=== PATIENT | male | born 1980 | race Caucasian/White ===

== ENCOUNTER 2019-10-06 14:02 | Outpatient (CLI) | payer BC, SELFPAY ==
--- NOTE | 2019-10-06 14:07 | MR_ITS ---
WS: [id number] MRI RIGHT KNEE NONCONTRAST TECHNIQUE: Axial PD, coronal PD fat sat, coronal PD, sagittal PD, and sagittal PD fat-sat images obta ined. CLINICAL INFORMATION: RIGHT KNEE SEPTIC ARTHRITIS COMPARISON: None. FINDINGS: Distal quadriceps and patella tendons are intact. Marked prepatellar and infrapatellar soft tissue ed arelis. Recommend correlation for cellulitis. Anterior and posterior cruciate ligaments are intact. Package Dyeing Machine Operator brittni intrasubstance signal abnormality in the medial meniscus. Lateral meniscus is intact. No acute ap pearing meniscal tears. Small amount of edema in Hoffa's fat pad. Normal popliteal fossa. No signific ant suprapatellar effusion. Normal medial and lateral collateral ligaments. Moderate chondromalacia patella. No subchondral edema . Normal medial and lateral patellar retinaculum. Mild chondromalacia involving the medial and lateral joint compartments. Small osteochondral defects involving the anterior and posterior articular surface of the MEDIAL femoral condyle. Anterior osteoc hondral defect measures 5 x 11 mm. Small amount of associated edema. Additional posterior articular o steochondral defect measuring 8 x 7 mm. Small amount of associated edema. MR/MR knee RT wo con* [id number] IMPRESSION: 1. Prominent diffuse subcutaneous edema involving the prepatellar soft tissues consistent with cellulitis. Recommend correlation for infection. No drainable fluid collections. 2. No significant suprapatellar effusion. 3. Anterior and posterior cruciate ligaments are intact. 4. Osteochondral defects involving the anterior and posterior articular surfac e of the medial femoral condyle with associated edema. This is described above. 5. Small amount of chronic intrasubstance signal abnormality involving the med ial meniscus. No acute appearing meniscal tears. 6. Moderate chondromalacia patella advanced for patient this age. No subchondr al edema.
== END 2019-10-06 14:03 | disposition home or self-care (01) ==
PROVIDERS: Family Provider Family Medicine; PCP Family Medicine; Visit Provider Family Medicine
DX: M00.861 Arthritis due to other bacteria, right knee (principal); R60.0 Localized edema; M22.41 Chondromalacia patellae, right knee
CPT/HCPCS: 73721

== ENCOUNTER 2019-10-11 09:41 | Inpatient (IN) | payer BC, SELFPAY ==
[2019-10-11 10:16] VITALS: BP 150/93; PULSE 97; RESP 20; TEMP 37.1; O2SAT 93
[2019-10-11 11:14] VITALS: BP 148/88; PULSE 86; RESP 20; TEMP 37; O2SAT 99
[2019-10-11] MEDS: vancomycin 1,000 MG in sodium chloride 0.9% 250 ML 250 MG IV (11:28)
[2019-10-11 11:33] LABS: Basophils # 0.1 10^3/uL (0.0-0.1); Basophils % 0.4 %; Eosinophils # 0.1 10^3/uL (0.0-0.8); Eosinophils % 0.9 %; Hematocrit 43.7 % (42.0-52.0); Hemoglobin 14.3 g/dL (11.7-16.6); Lymphocytes # 1.4 10^3/uL (0.8-4.8); Lymphocytes % 9.5 %; Mean Corpuscular HGB Conc 32.7 g/dL (30.0-36.0); Mean Corpuscular Hemoglobin 30.5 pg (28.0-34.0); Mean Corpuscular Volume 93.2 fL (80-94); Mean Platelet Volume 8.8 fL (7.4-10.4); Monocytes # 1.1 10^3/uL (0.2-0.9); Neutrophils # 11.89 10^3/uL (1.8-7.7); Neutrophils % 78.5 %; Nucleated Red Blood Cells % 0 %; Platelet Count 366 10^3/cmm (130-400); Red Blood Count 4.69 10^6/uL (4.1-5.3); Red Cell Distribution Width 13.2 % (12.1-15.1); White Blood Count 15.1 10^3/uL (4.0-10.0)
[2019-10-11 11:53] LABS: Alanine Aminotransferase 86 U/L (0-41); Albumin Level 3.8 g/dL (3.5-5.2); Alkaline Phosphatase 413 IU/L (40-130); Aspartate Amino Transferase 58 U/L (0-40); Blood Urea Nitrogen 19 mg/dL (6-20); C Reactive Protein 128.5 mg/L (0.0-4.9); Calcium 9.1 mg/dL (8.5-10.5); Carbon Dioxide 26 mmol/L (22-29); Chloride 100 mmol/L (98-107); Glomerular Filtration Rate 95.5 mL/min (90-130); Glucose 121 mg/dL (65-115); Osmolality Calculated 286 mOsm/kg (285-295); Sodium 139 mmol/L (136-145); Total Bilirubin 0.2 mg/dL (0.15-1.2); Total Protein 7.8 g/dL (6.6-8.7)
[2019-10-11 15:18] VITALS: BP 142/82; PULSE 81; RESP 20; TEMP 36.9; O2SAT 96
--- NOTE | 2019-10-11 18:18 | PC.NURSE ---
PT HAS RESTED IN BED THIS SHIFT, REDNESS AND SWELLING RIGHT RIGHT KNEE NOTED WELL A LINE DRAWN AROUND REDNESS, NO CHANGES AT THIS TIME.
[2019-10-11 20:00] VITALS: BP 136/89; PULSE 101; RESP 20; TEMP 37; O2SAT 97
[2019-10-11] MEDS: zolpidem 5 mg Tablet 10 MG PO (21:57)
[2019-10-11 23:39] VITALS: BP 123/73; PULSE 90; RESP 20; TEMP 36.7; O2SAT 96
[2019-10-12] MEDS: vancomycin 1,000 MG in sodium chloride 0.9% 250 ML 250 MG IV ×2 (00:26→13:04)
[2019-10-12 04:00] VITALS: BP 123/79; PULSE 72; RESP 18; TEMP 37; O2SAT 97
[2019-10-12 05:40] LABS: Basophils # 0.1 10^3/uL (0.0-0.1); Basophils % 0.7 %; Eosinophils # 0.3 10^3/uL (0.0-0.8); Eosinophils % 1.9 %; Hematocrit 42.7 % (42.0-52.0); Hemoglobin 13.7 g/dL (11.7-16.6); Lymphocytes # 2.2 10^3/uL (0.8-4.8); Lymphocytes % 13.5 %; Mean Corpuscular HGB Conc 32.1 g/dL (30.0-36.0); Mean Corpuscular Hemoglobin 29.3 pg (28.0-34.0); Mean Corpuscular Volume 91.2 fL (80-94); Mean Platelet Volume 8.8 fL (7.4-10.4); Monocytes # 1.7 10^3/uL (0.2-0.9); Monocytes % 9.9 %; Neutrophils # 11.54 10^3/uL (1.8-7.7); Neutrophils % 69.5 %; Nucleated Red Blood Cells % 0 %; Platelet Count 378 10^3/cmm (130-400); Red Blood Count 4.68 10^6/uL (4.1-5.3); Red Cell Distribution Width 13.2 % (12.1-15.1); White Blood Count 16.6 10^3/uL (4.0-10.0)
--- NOTE | 2019-10-12 06:40 | US_ITS ---
WS: [id number] ULTRASOUND SOFT TISSUES RIGHT knee HISTORY: US of right knee to evaluate for abscess COMPARISON: MRI 10/06/2019 TECHNIQUE: 2-D and color Doppler imaging is submitted. There is a large amount of fluid and edema surrounding the RIGHT knee. Ill-defined collection. There are no enhancing de la cruz. Collection extends over length of at least 4 cm. US/US soft tissue/extremity [id number] IMPRESSION: Mildly complex fluid collection surrounding the anterior RIGHT knee. Not well f ormed at this time. Phlegmonous collection or developing abscess. No definite w ell-formed abscess at this time.
--- NOTE | 2019-10-12 06:43 | PM.HP ---
Providers/Chief Complaint Admitting Physician: Patricio Davis MD Primary Care Provider: Patricio Davis MD Chief Complaint: RT KNEE CELLULITIS History of Present Illness Jayy Pelayo is a 38 year old male who presented to the clinic on the of this month with right knee pain swelling and redness. He had no injury to it. No sores or abrasions. Initially was thought to possibly be a septic knee. Discussed with Ortho at that time and we proceeded with an MRI. The MRI did not show any evidence of knee joint involvement. Look like a significant cellulitis. Patient was started on Levaquin 750 mg p.o. daily on that day. His white blood cell count was markedly elevated and his CRP was 230. Patient had no fevers during this time. He came in to see me in the clinic again on the . He stated at that time that the redness is gotten significantly worse on the but then it started to subside on the and . Overall it looked unchanged to me from what it was on the . He still had some significant pain and swelling. Blood work was obtained again which showed a modest improvement in white blood cell count and CRP. He followed up with me in a couple more days which was yesterday. There was really not significant improvement at that time. We discussed that we probably are dealing with a resistant bug to the Levaquin. At that point with the extensive pain redness and swelling we decided to admit him to the hospital for failed outpatient treatment of cellulitis. Patient received IV vancomycin since yesterday. This morning his knee is significantly improved. The erythema has receded from the najera placed yesterday. The swelling has went down some and the pain has subsided some as well. No fevers or chills. Review of Systems Narrative: General: No chronic fevers or chronic weight changes. HEENT: No acute changes in vision. No acute hearing loss. No new difficulty swallowing. Heart: No new chest pain or recent issues with coronary disease. Lungs: No history of TB. No chronic lung disease. GI: No history of GI bleeding. No hepatitis. No chronic nausea or vomitting. Renal: No dysuria or frequency. No hematuria Neuro: No acute neurological changes or deficits. Musculoskeletal: See history of present illness. Medications/Allergies Home Medications Medication Instructions Recorded Confirmed Last Taken Type multivitamin 1 PO DAILY 10/11/19 Unknown History Imitrex See Rx Instructions .ROUTE .COMPLEX 10/12/19 10/12/19 Unknown History cetirizine [Zyrtec] 10 mg PO DAILY PRN 10/12/19 10/12/19 Unknown History levofloxacin 750 mg PO DAILY 10/12/19 10/12/19 10/10/19 History Allergies Allergy/AdvReac Type Severity Reaction Status Date / Time No Known Allergies Allergy Verified 10/11/19 10:10 PFSH Acute PFSH: Medical History (Updated 10/12/19 @ 19:50 by Patricio Davis MD) Asthma Migraine Surgical History (Updated 10/12/19 @ 19:50 by Patricio Davis MD) History of tonsillectomy Family History (Updated 10/11/19 @ 10:08 by Salima Valdovinos RN) Mother Cancer Father Hypertension Social History (Updated 10/12/19 @ 19:52 by Patricio Davis MD) Smoking and tobacco status: never smoked Alcohol intake: former Substance/Drug Use: never Current occupation: works at [employer] Last Vital Signs Temp 98.6 F 10/12/19 04:00 Pulse 72 10/12/19 04:00 Resp 18 10/12/19 04:00 BP 123/79 10/12/19 04:00 Pulse Ox 97 10/12/19 04:00 10/11/19 10/11/19 10/12/19 14:59 22:59 06:59 Intake Total 490 / 850 360 / 850 Output Total 0 / 0 Balance 490 / 850 360 / 850 0 / 850 Physical Exam Narrative: EXAM NARRATIVE: General: No acute distress, Alert. Well nourished. HEENT: PERRLA, EOMI. vision grossly normal. Throat clear. Neck: supple, no adenopathy. Heart: Regular rate and rhythm. No murmurs, rubs or gallops. Normal capillary refill. Lungs: Clear to auscultation. No wheezes, rhonchi or rales. Abdomen: Positive bowel sounds. Non-tender, non-distended. No hepatosplenomegaly. No gaurding. Extremities: Right knee has extensive erythema and warmth to touch this is improved some since yesterday. Tender to touch but that is improved some as well. The top of his knee has become a little more fluctuant. Negative Omkar's. Data : 10/12/19 05:00 10/11/19 11:15 Micro: Microbiology 10/11/19 11:15 Blood Culture - Preliminary Blood SPECIMEN COLLECTED 10/11/19 11:20 Blood Culture - Preliminary Blood SPECIMEN COLLECTED A&P Assessment and plan (1) Cellulitis of right knee: -Patient has failed outpatient treatment with oral Levaquin 750 mg. Clinically this morning seems to be improved. Oddly enough his white blood cell count has increased slightly. Blood cultures in the clinic were negative. Blood cultures during his hospitalization are still pending. Suspect possibly MRSA. We will continue with the vancomycin. Go ahead and stop the Levaquin. Repeat labs in the morning. I would also like to proceed with an ultrasound of his knee to evaluate for any abscess formation. The MRI on the did not show any evidence of it at that time. If we get as much improvement tomorrow as we did today anticipate discharge tomorrow with outpatient IV vancomycin Status: Acute Attestations Medical Necessity Statement*: This is a 38-year-old male with failed outpatient treatment of a severe right knee cellulitis. Monitoring him closely for septic arthritis. He continues to need inpatient IV treatments and monitoring. His stay is anticipated to cross 2 midnights and will require full admission status. Coding Level of Care Code Acute Embedded Firmware Engineer for Tasha Elias Diagnoses Cellulitis of right knee L03.115
[2019-10-12] MEDS: levofloxacin-dextrose 5 % 750 MG/150 ML PREMIX 100 MG IV (07:30)
[2019-10-12 08:00] VITALS: BP 126/82; PULSE 83; RESP 16; TEMP 36.5; O2SAT 98
[2019-10-12 11:59] VITALS: BP 130/88; PULSE 97; RESP 16; TEMP 36.9; O2SAT 95
--- NOTE | 2019-10-12 13:50 | PC.CHAP ---
Pastoral Care Encounter/Spiritual Assessment Type of Contact [] Declined fish hatchery man visit [] Patient/Family/Request visit [] Outpatient visit [] Follow-up visit [] Physician referral [] Code/Alert [x] Routine visit [] Staff referral [] Actively dying [] Patient sleeping [] Family support [] [] Out of room [] Palliative care [] [] Receiving care in room [] Pre-surgical visit [] Trauma [] Long length of stay [] ICU visit [] Other: Relational/Emotional Strength [x] Patient feels connected with others/family/visitors/staff [] Distress [] Loneliness/isolation [] Abandonment Spirituality of Patient [] Person of Corine [] Attends Scientologist of their Corine [] Believes in Prayer [] Reads Bible or Protestant materials [x] There are Spiritual issues to be addressed Hander In Interventions [x] Prayer [x] Active listening [x] Non-anxious presence [x] Spiritual/emotional support [] Crisis/trauma care [] Spiritual counseling [] Bereavement support [] Provided bereavement packet [] Provided Bible/devotional materials [] Provided toy/stuffed animal, coloring book to patient or family member [] Provided Communion [] Anointing/Hunker [] Salvation [x] Completed spiritual assessment [] Other: Impact on Illness or Injury [] Angry [] Fearful [] Anxious [] Often cries [] Exhaustion [] Unable to work [] Unable to attend oriental orthodox [] Unable to walk/stand [] Unable to read [] Unable to drive [] Unable to eat/drink [] Unable to sleep [] Unable to be with family [] Patient intubated [] Other: Summary Patient knows Santana intellectually but not savingly. The gospel of Santana was provided. Time spent with patient 15 minutes
[2019-10-12 15:49] VITALS: BP 132/82; PULSE 86; RESP 16; TEMP 36.9; O2SAT 97
--- NOTE | 2019-10-12 17:36 | PC.NURSE ---
PT REDNESS AND SWELLING HAS GONE DOWN SINCE I HAD PT YESTERDAY ON 10/11/19, REDNESS AND SWELLING HAS BEEN MARKED FROM PREVIOUS SHIFT. PT HAS HAD NO COMPLAINTS OF PAIN OR DISCOMFORT.
[2019-10-12 19:48] VITALS: BP 141/93; PULSE 89; RESP 19; TEMP 37
[2019-10-12] MEDS: zolpidem 5 mg Tablet 10 MG PO (22:07)
[2019-10-12 23:56] VITALS: BP 130/68; PULSE 88; RESP 20; TEMP 36.7; O2SAT 99
[2019-10-13 00:55] LABS: Vancomycin Trough 5.3 ug/mL (10-15)
[2019-10-13 04:00] VITALS: BP 133/82; PULSE 88; RESP 18; TEMP 36.7; O2SAT 94
[2019-10-13 04:29] LABS: Basophils # 0.1 10^3/uL (0.0-0.1); Basophils % 0.7 %; Eosinophils # 0.4 10^3/uL (0.0-0.8); Eosinophils % 2.4 %; Hematocrit 42.9 % (42.0-52.0); Hemoglobin 13.8 g/dL (11.7-16.6); Lymphocytes # 2.4 10^3/uL (0.8-4.8); Mean Corpuscular HGB Conc 32.2 g/dL (30.0-36.0); Mean Corpuscular Hemoglobin 29.5 pg (28.0-34.0); Mean Corpuscular Volume 91.7 fL (80-94); Mean Platelet Volume 8.6 fL (7.4-10.4); Monocytes # 1.5 10^3/uL (0.2-0.9); Monocytes % 9.7 %; Neutrophils # 10.63 10^3/uL (1.8-7.7); Neutrophils % 67.5 %; Nucleated Red Blood Cells % 0 %; Platelet Count 392 10^3/cmm (130-400); Red Blood Count 4.68 10^6/uL (4.1-5.3); White Blood Count 15.8 10^3/uL (4.0-10.0)
[2019-10-13 04:54] LABS: C Reactive Protein 63.9 mg/L (0.0-4.9)
--- NOTE | 2019-10-13 06:38 | PM.PN ---
Subjective Subjective: Interval history: Patient has had some decrease pain in his right knee and decreased swelling. It does not hurt much to walk on. However, he has had some significantly increased redness. No fevers or chills. No chest pain or shortness of breath. Vitals/I&O/Wt Last Vital Signs Temp 98.0 F 10/13/19 04:00 Pulse 88 10/13/19 04:00 Resp 18 10/13/19 04:00 BP 133/82 10/13/19 04:00 Pulse Ox 94 10/13/19 04:00 10/12/19 10/12/19 10/13/19 14:59 22:59 06:59 Intake Total 1000 / 2240 640 / 2240 600 / 2240 Balance 1000 / 2240 640 / 2240 600 / 2240 Physical Exam Narrative: EXAM NARRATIVE: General: No acute distress, Alert. Well nourished. Heart: Regular rate and rhythm. No murmurs, rubs or gallops. Normal capillary refill. Lungs: Clear to auscultation. No wheezes, rhonchi or rales. Abdomen: Positive bowel sounds. Non-tender, non-distended. No hepatosplenomegaly. No gaurding. Extremities: No clubbing, cyanosis. He does have some increased erythema of his right knee that extends beyond the lines drawn yesterday. Swelling seems to be decreased some. Still a bit warm to touch. Not quite as tender to palpation. Negative Omkar's Data : 10/13/19 04:11 10/11/19 11:15 Micro: Microbiology 10/11/19 11:15 Blood Culture - Preliminary Blood NEGATIVE TO DATE 10/11/19 11:20 Blood Culture - Preliminary Blood NEGATIVE TO DATE A&P Assessment and plan (1) Cellulitis of right knee: -Patient had failed outpatient treatment for right knee cellulitis with Levaquin 750 mg. He was admitted to the hospital and started on IV vancomycin. He had pretty dramatic improvement in his erythema in the first 24 hours. His white blood cell count increased a little though. MRI as an outpatient showed no joint involvement. Ultrasound performed yesterday shows possible developing abscess but nothing definite at this point, this will need to continue to be monitored and possibly drained in the future depending on how it evolves. Unfortunately today his erythema has again worsened, however, his white blood cell count has improved slightly and his CRP has significantly improved. His swelling and tenderness has had some modest improvement since yesterday. -Clinically his response here is been a mixed picture. He he definitely has not had a dramatic improvement in the last 24 hours that he did in the first 24 hours. Cultures done in the clinic are still negative and blood cultures performed in the hospital are still pending. I am concerned about resistant organisms or multiple bacteria being the etiology. We will continue with the vancomycin. Dosing was increased per his last trough. We will also add gentamicin with pharmacy to dose. Status: Acute Attestations Medical Necessity Statement*: Patient is 38-year-old with severe right knee cellulitis possible abscess formation requiring continued inpatient IV treatments and monitoring Coding Level of Care Code Acute Wagon Winder for Tasha Elias Diagnoses Cellulitis of right knee L03.115
[2019-10-13 08:00] VITALS: BP 134/89; PULSE 93; RESP 18; TEMP 37.3; O2SAT 96
[2019-10-13] MEDS: GENTAMICIN IV (08:21)
[2019-10-13] MEDS: SODIUM CHLORIDE 0.9% IV (08:21)
[2019-10-13 11:38] VITALS: BP 119/74; PULSE 84; RESP 18; TEMP 37; O2SAT 97
[2019-10-13 16:00] VITALS: BP 137/55; PULSE 80; RESP 18; TEMP 37.1; O2SAT 98
[2019-10-13 20:00] VITALS: PULSE 92; RESP 20; TEMP 37; O2SAT 96
[2019-10-13] MEDS: zolpidem 5 mg Tablet 10 MG PO (21:01)
[2019-10-13 21:29] VITALS: BP 140/76
[2019-10-14] VITALS: BP 132/70; PULSE 96; RESP 21; TEMP 36.9; O2SAT 94
[2019-10-14 04:00] VITALS: BP 138/66; PULSE 96; RESP 19; TEMP 37; O2SAT 98
[2019-10-14 04:29] LABS: Basophils # 0.1 10^3/uL (0.0-0.1); Basophils % 0.7 %; Eosinophils # 0.3 10^3/uL (0.0-0.8); Hematocrit 43.8 % (42.0-52.0); Hemoglobin 13.8 g/dL (11.7-16.6); Lymphocytes # 2.3 10^3/uL (0.8-4.8); Lymphocytes % 14.8 %; Mean Corpuscular HGB Conc 31.5 g/dL (30.0-36.0); Mean Corpuscular Hemoglobin 28.9 pg (28.0-34.0); Mean Corpuscular Volume 91.8 fL (80-94); Mean Platelet Volume 8.8 fL (7.4-10.4); Monocytes # 1.3 10^3/uL (0.2-0.9); Monocytes % 8.4 %; Neutrophils % 70.2 %; Nucleated Red Blood Cells % 0 %; Platelet Count 412 10^3/cmm (130-400); Red Blood Count 4.77 10^6/uL (4.1-5.3); Red Cell Distribution Width 12.6 % (12.1-15.1); White Blood Count 15.8 10^3/uL (4.0-10.0)
[2019-10-14 04:53] LABS: Alanine Aminotransferase 87 U/L (0-41); Albumin Level 3.8 g/dL (3.5-5.2); Alkaline Phosphatase 299 IU/L (40-130); Anion Gap 13.4 (5-19); Aspartate Amino Transferase 42 U/L (0-40); Blood Urea Nitrogen 19 mg/dL (6-20); Calcium 9.5 mg/dL (8.5-10.5); Carbon Dioxide 28 mmol/L (22-29); Chloride 103 mmol/L (98-107); Globulin 3.9 g/dL (1.3-4.6); Glomerular Filtration Rate 95.5 mL/min (90-130); Glucose 103 mg/dL (65-115); Osmolality Calculated 287 mOsm/kg (285-295); Potassium 4.4 mmol/L (3.5-5.1); Sodium 140 mmol/L (136-145); Total Bilirubin 0.3 mg/dL (0.15-1.2); Total Protein 7.7 g/dL (6.6-8.7)
[2019-10-14 07:41] VITALS: BP 157/96; PULSE 82; RESP 18; TEMP 36.5; O2SAT 99
[2019-10-14] MEDS: GENTAMICIN IV (10:37)
[2019-10-14] MEDS: SODIUM CHLORIDE 0.9% IV (10:37)
--- NOTE | 2019-10-14 11:21 | PM.PN ---
Subjective Subjective: Interval history: History and physical reviewed. Patient reports he is about the same as yesterday. Knee still hurts, mainly with flexion. Medications: Reviewed: Yes Vitals/I&O/Wt Last Vital Signs Temp 97.7 F 10/14/19 07:41 Pulse 82 10/14/19 07:41 Resp 18 10/14/19 07:41 BP 157/96 10/14/19 07:41 Pulse Ox 99 10/14/19 07:41 10/13/19 10/14/19 10/14/19 22:59 06:59 14:59 Intake Total 890 / 1541.250 300 / 1841.250 360 / 360 Output Total 240 / 240 1125 / 1365 Balance 650 / 1301.250 -825 / 476.250 360 / 360 Weight last 48 hrs Weight 75.659 kg Physical Exam Narrative: EXAM NARRATIVE: General exam no apparent distress Cardiovascular regular in rhythm without murmur Lungs clear Abdomen is soft, positive bowel sounds Extremities no cyanosis clubbing. Edema present right knee, and lower extremity. Erythema over the right knee. Most discomfort over the prepatellar bursa. Data : 10/14/19 04:01 10/14/19 04:01 A&P Assessment and plan (1) Cellulitis of right knee: He appears to have septic prepatellar bursitis on exam today. I will ask orthopedics to evaluate him, to see if surgical incision and drainage is needed.. He had been treated with antibiotics outpatient, and has been getting IV vancomycin here and gentamicin was added. Recent ultrasound question developing abscess. White blood cell count continues to remain high. Status: Acute Attestations Medical Necessity Statement*: Needs continued hospital stay for IV antibiotics pending evaluation by orthopedics Coding Level of Care Code Acute Manual Lathe Operator for [facility] F[facility] Diagnoses Cellulitis of right knee L03.115
[2019-10-14 11:47] VITALS: BP 130/86; PULSE 80; RESP 20; TEMP 36.7; O2SAT 95
[2019-10-14 15:36] VITALS: BP 137/88; PULSE 83; RESP 20; TEMP 36.8; O2SAT 97
[2019-10-14 19:51] VITALS: BP 119/76; PULSE 88; RESP 20; TEMP 37; O2SAT 96
[2019-10-14] MEDS: zolpidem 5 mg Tablet 10 MG PO (23:25)
[2019-10-15] VITALS (15 sets, daily range): BP systolic 110–175; BP diastolic 68–125; PULSE 68–91; RESP 16–20; TEMP 36.1–37.1; O2SAT 95–99
--- NOTE | 2019-10-15 07:56 | PC.NURSE ---
Patient to surgery at this time.
--- NOTE | 2019-10-15 08:29 | ANES.PREANE2 ---
Pre-Anesthetic Assessment Pre-Anesthetic Assessment: Height/Weight: Height 1.73 m Weight 75.659 kg Temp Pulse Resp BP Pulse Ox 97.9 F 68 20 H 145/98 99 10/15/19 08:00 10/15/19 08:00 10/15/19 08:00 10/15/19 08:00 10/15/19 08:00 Preop Diagnosis: Prepatellar bursitis right knee Proposed Procedure: Operation Date: 10/15/19 08:40 Proposed Procedures p Incision & Drainage Lower Extremity(Right) - Boubacar Martinez MD Was Beta Fide taken within 24 hours: N/A Last intake: Intake Last Liquid Date 10/14/19 Last Liquid Time 23:59 Last Solid Date 10/14/19 Last Solid Time 20:00 Social: Social History: No alcohol and No tobacco Exam: Pre-Anes Outpt Exam: alert, oriented x 3, clear to auscultation bilaterally and regular rate & rhythm Airway: Submandibular: WNL Cervical ROM: WNL MP: 1 Additional comments: Normal Dentition Pulmonary: Pulmonary: Asthma Comments: Childhood Asthma no longer clinically significant CV/HEM: CV/HEM: None reported : : None reported Hepatic: Hepatic: None reported GI: GI: None reported Metabolic: Metabolic: None reported Musc/skel: Musc/skel: None reported Neuropsych: Neuropsych: None reported Anesthetic Plan: ASA status: 1E Anesthesia: General Risk of > 500 ml blood loss (7ml/kg in children): No Meds/Allergies Current Medications: Current Medications Generic Name Dose Route Start Last Admin Trade Name Freq PRN Reason Stop Dose Admin Gentamicin Sulfate 450 mg/ 111.25 mls @ 111. 25 mls/hr 10/13/19 09:00 10/14/19 10:37 Sodium Chloride IV 100 mls/hr Q24H BRANDON Administration As Directed Vancomycin HCl 1,2 00 mg/ 250 mls @ 250 mls /hr 10/14/19 01:30 10/15/19 00:40 Sodium Chloride IV 250 mls/hr Q12H BRANDON Administration Protocol Zolpidem Tartrate 10 mg 10/11/19 10:19 10/14/19 23:25 Ambien PO 10 mg BEDTIME PRN Administration SLEEP PFSH Anesthesia PFSH: Medical History (Updated 10/12/19 @ 19:50 by Patricio Davis MD) Asthma Migraine Surgical History (Updated 10/12/19 @ 19:50 by Patricio Davis MD) History of tonsillectomy Family History (Updated 10/11/19 @ 10:08 by Salima Valdovinos RN) Mother Cancer Father Hypertension Social History (Updated 10/12/19 @ 19:52 by Patricio Davis MD) Smoking and tobacco status: never smoked Alcohol intake: former Substance/Drug Use: never Current occupation: works at [email or web address] Anesthesia CBC & Chem 7: 10/14/19 04:01 10/14/19 04:01 Other Labs: Laboratory Results - last 48 hr 10/14/19 10/14/19 04:01 04:01 WBC 15.8 H RBC 4.77 Hgb 13.8 Hct 43.8 MCV 91.8 MCH 28.9 MCHC 31.5 RDW 12.6 Plt Count 412 H MPV 8.8 Neut % (Auto) 70.2 Lymph % (Auto) 14.8 Rock % (Auto) 8.4 Eos % (Auto) 2.0 Baso % (Auto) 0.7 Neut # (Auto) 11.10 H Lymph # (Auto) 2.3 Rock # (Auto) 1.3 H Eos # (Auto) 0.3 Baso # (Auto) 0.1 Nucleated RBC % (auto) 0 Nucleated RBCs # 0.0 Sodium 140 Potassium 4.4 Chloride 103 Carbon Dioxide 28 Anion Gap 13.4 BUN 19 Creatinine 0.9 GFR Calculation 95.5 Glucose 103 Calculated Osmolality 287 Calcium 9.5 Total Bilirubin 0.3 AST 42 H ALT 87 H Alkaline Phosphatase 299 H C-Reactive Protein 39.0 H Total Protein 7.7 Albumin 3.8 Globulin 3.9 Cardiac Studies: No Data to Display
--- NOTE | 2019-10-15 08:41 | P.CONIM_ITS ---
Providers/Reason For Consult Consulting Physican/Specialty*: Boubacar Martinez MD orthopedic surgery Reason for Consult*: Prepatellar bursitis right knee Attending Physician: Vinayak Levi MD Primary Care Provider: Patricio Davis MD History of Present Illness History of Present Illness Jayy Pelayo is a 38 year old male who describes a history of pain and swelling his right anterior knee that began perhaps over a week ago. An MRI at that time was obtained showing no joint involvement. He had prepatellar swelling that was interpreted as cellulitis. He started on Levaquin but continued to have pain and swelling. He was admitted to the hospital on 10/11/2023 after IV Vancomycin and yesterday gentamicin was added. He does state that he is feeling better today. Meds/Allergies Home Medications and Allergies Home Medications Medication Instructions Recorded Confirmed Last Taken Type multivitamin 1 tab PO DAILY 10/11/19 10/12/19 Unknown History Imitrex See Rx Instructions .ROUTE .COMPLEX 10/12/19 10/12/19 Unknown History cetirizine [Zyrtec] 10 mg PO DAILY PRN 10/12/19 10/12/19 Unknown History levofloxacin 750 mg PO DAILY 10/12/19 10/12/19 10/10/19 History Allergies Allergy/AdvReac Type Severity Reaction Status Date / Time No Known Allergies Allergy Verified 10/11/19 10:10 Current Medications Current Medications Generic Name Dose Route Start Last Admin Trade Name Freq PRN Reason Stop Dose Admin Gentamicin Sulfate 450 mg/ 111.25 mls @ 111.25 mls/hr 10/13/19 09:00 10/14/19 10:37 Sodium Chloride IV 100 mls/hr Q24H BRANDON Administration As Directed Vancomycin HCl 1,200 mg/ 250 mls @ 250 mls/hr 10/14/19 01:30 10/15/19 00:40 Sodium Chloride IV 250 mls/hr Q12H BRANDON Administration Protocol Zolpidem Tartrate 10 mg 10/11/19 10:19 10/14/19 23:25 Ambien PO 10 mg BEDTIME PRN Administration SLEEP PFSH Acute PFSH: Medical History (Updated 10/15/19 @ 08:47 by Boubacar Martinez MD) Asthma Migraine Surgical History (Updated 10/12/19 @ 19:50 by Patricio Davis MD) History of tonsillectomy Family History (Updated 10/11/19 @ 10:08 by Salima Valdovinos RN) Mother Cancer Father Hypertension Social History (Updated 10/12/19 @ 19:52 by Patricio Davis MD) Smoking and tobacco status: never smoked Alcohol intake: former Substance/Drug Use: never Current occupation: works at [employer] Last Vital Signs Temp 97.9 F 10/15/19 08:00 Pulse 68 10/15/19 08:00 Resp 20 H 10/15/19 08:00 BP 145/98 10/15/19 08:00 Pulse Ox 99 10/15/19 08:00 10/14/19 10/15/19 10/15/19 22:59 06:59 14:59 Intake Total 580 / 1420 250 / 1670 Output Total 1000 / 1000 800 / 1800 Balance -420 / 420 -550 / -130 Physical Exam Narrative: EXAM NARRATIVE: On examination of patient's right knee. He has swelling and tenderness in the infrapatellar area of the knee. There does appear to be some fluctuance there as well. There is slight erythema anteriorly and medially over the knee. There is Apsley no effusion. His motion is from full extension to 45 degrees before he is limited by pain. He has a strong right dorsalis pedis pulse. He will flex and send his toes and his ankle without any motor deficits. A&P Assessment and plan (1) Patellar bursitis of right knee: Discussed treatment options with the patient and his who was on the phone with us. I told her that prepatellar bursitis can be difficult to treat with antibiotics alone. I told him the bursa is a protective environment for the bacteria and and less the bursa is excised eradication of the infection is difficult. I think he is clinically doing better. In my opinion if he undergoes bursal excision and debridement he can be converted to IV antibiotics and discharged home. I discussed the possible risk of recurrent infection. Discussed risk of bleeding. Discussed the possible need for further procedures. I discussed unlikely anesthetic risk. He understands all these and agrees to proceed. He understands that nonoperative treatment has an work and agrees to proceed with the above procedure Status: Acute Coding Level of Care Code Acute Personal Financial Counselor for [facility] Diagnoses Patellar bursitis of right knee M70.51
--- NOTE | 2019-10-15 09:56 | PM.OP ---
Operative Report Date of procedure: October 15, 2019 Pre-op Diagnosis: Prepatellar septic bursitis right knee Post-op diagnosis: same Post-op Findings: Patient had a firm scarred prepatellar bursa. No purulence or necrotic tissue was identified Procedure Done: Excision prepatellar bursa right knee Specimens removed/disposition: Routine and anaerobic cultures from the prepatellar bursa were sent Pathology: none sent Surgeon: Boubacar Martinez Anesthesia: General Estimated blood loss (mL): 50 Tourniquet time (min): 7 Findings: Patient had densely scarred right prepatellar bursa. No deep necrosis or purulent tissue was identified Condition: stable Disposition: PACU Procedure: The patient was taken to the operating room and given a general anesthesia. As he was already treated with vancomycin and gentamicin no additional antibiotics were given. A timeout was performed. The leg was elevated and tourniquet inflated. A 5 cm long incision was made from the midpoint patella extending distally to just medial to the tibial tubercle. Dissection was carried down through the skin . Really no significant fluid accumulations or purulence was identified. The very dense scarring about the prepatellar bursa was noted. Utilizing Malone scissors the scarred bursa was removed and bulk. Residual portions of were removing small rondure. The wound was irrigated with saline. Tourniquet was deflated. Skin was closed with a horizontal mattress 3-0 Prolene sutures. Xeroflo gauze, 4 x 4's, and compressive web roll and Jhonny were applied. The patient was placed in a knee immobilizer. He was extubated and taken to the care of room in stable condition
--- NOTE | 2019-10-15 10:32 | PC.NURSE ---
Patient returned from surgery at this time.
--- NOTE | 2019-10-15 11:40 | PM.DCS ---
Discharge Providers Date of Admission: 10/11/19 09:41 Date of Discharge: October 15, 2019 Attending Provider at Admission: Patricio Davis MD Attending Provider at Discharge: Vinayak Levi MD Primary Care Provider: Patricio Davis MD Diagnoses at Discharge Discharge Diagnosis (1) Patellar bursitis of right knee: Status: Acute Reason for Visit Reason for Visit: RT KNEE CELLULITIS Hospital Course Hospital Course: Jayy is a 38-year-old white male who presented to the hospital with right knee cellulitis failing outpatient treatment. He was placed on IV antibiotics consisting of vancomycin, and had continued slow improvement. Gentamicin was eventually added. Orthopedics was consulted secondary to concern for septic prepatellar bursitis. They evaluated this, confirm diagnosis and he went for surgery on October 14 and he underwent excision of his right prepatellar bursa. This demonstrated a firm scarred bursa with no necrotic tissue. Prior to the surgery he still had significant bogginess and edema of the prepatellar bursa but erythema of the knee hadimproved. Following surgery it was thought he could be discharged home on Bactrim, with close follow-up with orthopedics. Physical Exam Narrative: EXAM NARRATIVE: General exam no apparent distress Cardiovascular regular rate and rhythm Lungs clear Abdomen is soft nontender with positive bowel sounds Extremities no cyanosis clubbing or edema Discharge Data Data Completed and Pending: Completed Studies During Hospitalization Category Date Time Status US soft tissue/ex tremity 27057 Rout ine Ultrasound 10/12/19 06:40 Completed Pending at discharge Category Date Time Status Abscess Culture a nd Gram Stain Rout ine Lab 10/15/19 09:15 Received Anaerobic Culture Routine Lab 10/15/19 09:15 Received Blood Culture Sta t Lab 10/11/19 11:15 Results Hepatitis Acute P alexandra Routine Lab 10/15/19 11:38 Ordered Vitals: Last Vital Signs Temp 98.2 F 10/15/19 11:33 Pulse 89 10/15/19 11:33 Resp 20 H 10/15/19 11:33 BP 155/93 10/15/19 11:33 Pulse Ox 98 10/15/19 11:33 Discharge Plan Discharge Patient Disposition: Home Condition: Stable Prescriptions: [place] 7.5-325 mg tablet 1 tab PO Q4H Qty: 30 RF: 0 sulfamethoxazole-trimethoprim [Bactrim DS] 800-160 mg tablet 1 tab PO Q12H 7 Days Qty: 14 RF: 0 Continued multivitamin bottle 1 tab PO DAILY RF: 0 Zyrtec 10 mg Tablet 10 mg PO DAILY PRN (Reason: allergies) RF: 0 Imitrex See Rx Instructions .ROUTE .COMPLEX RF: 0 Discontinued levofloxacin 750 mg tablet 750 mg PO DAILY RF: 0 Discharge Orders: Discharge Order (Routine); Ordered 10/15/19 Ordered By: Vinayak Levi Referrals: Boubacar Martinez MD [Physician] - 4-7 days Patricio Davis MD [Primary Care Provider] - 1-3 days Discharge Diet: Advance as tolerated Discharge Activity: Limit activity as instructed Activity Restrictions/Additional Instructions: Weight-bear as tolerated in brace. Follow-up in clinic late next week for dressing change. May take ibuprofen for mild pain and hydrocodone for severe pain Discharge Attestations Time Spent in Discharge Care*: greater than 30 min Quality Metrics Clinical Quality Measures During this hospital stay, did patient experience: None Coding Level of Care Code Acute Biometrics Analyst for Tasha Elias Diagnoses Patellar bursitis of right knee M70.51
--- NOTE | 2019-10-15 11:44 | PC.OT ---
OT orders received to evaluate and treat. OT observed pt. ambulating with PT. OT educated pt. in dressing lower body with affected limb. After observation, OT evaluation not needed at this time. Pt. had no questions or concerns.
[2019-10-15 12:11] LABS: Hepatitis A Antibody IgM Non-Reactive (Nonreactive); Hepatitis B Core IgM Non-Reactive (Nonreactive); Hepatitis B Surface Antigen Non-Reactive (Nonreactive); Hepatitis C Virus Antibody Non-Reactive (Nonreactive)
--- NOTE | 2019-10-15 13:30 | PC.NURSE ---
Reviewed patient discharge with patient. Patient verbalized understanding of discharge instructions, including medications and follow up appointments. Patient is A&Ox3. Respirations even and non-labored on room air. Patient IV was removed intact prior to discharge. Patient pushed in wheel chair to private car.
== END 2019-10-15 13:30 | disposition home or self-care (01) | DRG 501 ==
PROVIDERS: Orthopaedic Surgery; Admitting Provider Family Medicine; PCP Family Medicine; Visit Provider Internal Medicine
PROC: 0MBN0ZZ Excision of Right Knee Bursa and Ligament, Open Approach (ICD-10-PCS; principal; 2019-10-15 08:30)
DX: M71.161 Other infective bursitis, right knee (principal); L03.115 Cellulitis of right lower limb; F10.21 Alcohol dependence, in remission; J45.909 Unspecified asthma, uncomplicated
CPT/HCPCS: 12345; 36415; 76882; 80053; 80074; 80202; 85025; 86140; 87040; 87070; 87075; 87205; 97161; J0131; J1100; J1580; J1885; J1956; J2405; J2704; J3010; J3370; J7050

== ENCOUNTER 2019-11-08 10:25 | Outpatient (RCR) | payer BC, SELFPAY | END 2019-11-22 23:59 | disposition home or self-care (01) | LOC: SPT 10:25 | PROVIDERS: PCP Family Medicine; Referring Provider Orthopaedic Surgery; Visit Provider Orthopaedic Surgery | DX: Z48.89 Encounter for other specified surgical aftercare (principal) | CPT/HCPCS: 97110; 97161 ==

== ENCOUNTER 2019-11-23 06:00 | Outpatient (RCR) | payer BC, SELFPAY | END 2019-12-23 23:59 | disposition home or self-care (01) | LOC: SPT 06:00 | PROVIDERS: PCP Family Medicine; Referring Provider Orthopaedic Surgery; Visit Provider Orthopaedic Surgery | DX: Z47.89 Encounter for other orthopedic aftercare (principal) | CPT/HCPCS: 97110 ==

== ENCOUNTER → 2022-01-02 07:46 | Outpatient (BNVA) | payer BC, SELFPAY | PROVIDERS: PCP Family Medicine; Visit Provider Family Medicine | DX: Z00.00 Encounter for general adult medical examination without abnormal findings (principal) | CPT/HCPCS: 80053; 80061 ==

== ENCOUNTER 2024-02-01 08:18 | Outpatient (CLI) | payer SELFPAY ==
[2024-02-01 08:49] LABS: HF Add Manual Diff No
[2024-02-01 08:57] LABS: Basophils % 0.5 %; Eosinophils # 0.3 10^3/uL (0.0-0.8); Eosinophils % 3.9 %; Hematocrit 41.9 % (37-53); Lymphocytes # 1.8 10^3/uL (0.8-4.8); Lymphocytes % 26.4 %; Mean Corpuscular HGB Conc 34.4 g/dL (30-55); Mean Corpuscular Volume 90.3 fl (82-101); Mean Platelet Volume 10.1 fL (7.4-10.4); Monocytes # 0.7 10^3/uL (0.2-0.9); Neutrophils # 3.91 10^3/uL (1.8-7.7); Neutrophils % 58.9 %; Nucleated Red Blood Cells % 0 %; Platelet Count 216 10^3/cmm (157-399); Red Blood Count 4.64 10^6/uL (3.85-5.65); White Blood Count 6.63 10^3/uL (3.29-11.43)
[2024-02-01 09:39] LABS: 25 Hydroxy Vitamin D 18 ng/mL (30-100); Alanine Aminotransferase 52 U/L (0-41); Albumin Level 4.1 g/dL (3.5-5.2); Alkaline Phosphatase 78 U/L (40-130); Anion Gap 14.2 (5-19); Aspartate Amino Transferase 33 U/L (0-40); Blood Urea Nitrogen 18 mg/dL (6-20); Calcium 9.5 mg/dL (8.5-10.5); Carbon Dioxide 26 mmol/L (22-29); Chloride 105 mmol/L (98-107); Chol HDL Ratio 3.86 mg/dL (1.0-5.00); Cholesterol 197 mg/dL (0-200); Globulin 2.4 g/dL (1.3-4.6); Glomerular Filtration Rate 124.3 mL/min (90-130); Glucose 81 mg/dL (65-115); HDL Cholesterol 51 mg/dL (60-100); LDL Cholesterol Calculated 132 mg/dL (50-129); LDL HDL Ratio 2.59 RATIO (0.00-3.22); Osmolality Calculated 293 mOsm/kg (285-295); Potassium 4.2 mmol/L (3.5-5.1); Prostate Specific Antigen Scr 0.24 ng/mL (0-4); Sodium 141 mmol/L (136-145); Thyroid Stimulating Hormone 3.27 uIU/mL (0.27-4.20); Total Bilirubin 0.3 mg/dL (0.15-1.2); Total Protein 6.5 g/dL (6.6-8.7); Triglycerides 70 mg/dL (0-150)
[2024-02-01 10:05] LABS: Estmated Average Glucose 100; Hemoglobin A1C 5.1 % (4.0-6.0)
== END 2024-02-01 08:19 | disposition home or self-care (01) ==
LOC: LAB 08:19
PROVIDERS: PCP Family Medicine; Visit Provider Dermatology
DX: Z13.9 Encounter for screening, unspecified (principal)
CPT/HCPCS: 36415

== ENCOUNTER 2024-05-02 08:00 | Outpatient (CLI) | payer SELFPAY ==
[2024-05-02 08:13] LABS: HF Add Manual Diff No
[2024-05-02 08:17] LABS: Basophils % 0.4 %; Eosinophils # 0.2 10^3/uL (0.0-0.8); Eosinophils % 2.6 %; Lymphocytes # 1.6 10^3/uL (0.8-4.8); Lymphocytes % 23.2 %; Mean Corpuscular HGB Conc 33.9 g/dL (30-55); Mean Corpuscular Hemoglobin 30.2 pg (27-33); Mean Corpuscular Volume 89.1 fl (82-101); Mean Platelet Volume 9.4 fL (7.4-10.4); Monocytes # 0.9 10^3/uL (0.2-0.9); Monocytes % 12.3 %; Neutrophils # 4.21 10^3/uL (1.8-7.7); Neutrophils % 61.2 %; Nucleated Red Blood Cells % 0 %; Platelet Count 300 10^3/cmm (157-399); Red Blood Count 5.16 10^6/uL (3.85-5.65); Red Cell Distribution Width 11.9 % (12.1-15.1); White Blood Count 6.89 10^3/uL (3.29-11.43)
[2024-05-02 08:35] LABS: Alanine Aminotransferase 32 U/L (0-41); Albumin Level 4.5 g/dL (3.5-5.2); Alkaline Phosphatase 89 U/L (40-130); Anion Gap 12.4 (5-19); Aspartate Amino Transferase 25 U/L (0-40); Blood Urea Nitrogen 15 mg/dL (6-20); Calcium 9.6 mg/dL (8.5-10.5); Carbon Dioxide 29 mmol/L (22-29); Chloride 101 mmol/L (98-107); Chol HDL Ratio 4.04 mg/dL (1.0-5.00); Cholesterol 202 mg/dL (0-200); Globulin 2.8 g/dL (1.3-4.6); Glomerular Filtration Rate 106.5 mL/min (90-130); Glucose 94 mg/dL (65-115); HDL Cholesterol 50 mg/dL (60-100); LDL Cholesterol Calculated 143 mg/dL (50-129); LDL HDL Ratio 2.86 RATIO (0.00-3.22); Osmolality Calculated 287 mOsm/kg (285-295); Potassium 4.4 mmol/L (3.5-5.1); Sodium 138 mmol/L (136-145); Total Bilirubin 0.5 mg/dL (0.15-1.2); Total Protein 7.3 g/dL (6.6-8.7); Triglycerides 46 mg/dL (0-150)
[2024-05-02 08:38] LABS: Estmated Average Glucose 108; Hemoglobin A1C 5.4 % (4.0-6.0)
[2024-05-02 08:51] LABS: 25 Hydroxy Vitamin D 37 ng/mL (30-100)
== END 2024-05-02 08:01 | disposition home or self-care (01) ==
PROVIDERS: PCP Family Medicine; Visit Provider Dermatology
DX: Z01.89 Encounter for other specified special examinations (principal)